=== PATIENT | female | born 1975 | race Two or more races ===

== ENCOUNTER 2022-01-23 13:35 | Emergency (ER) | payer MEDICAID ==
[~2022-01-23] VITALS: Ht 160 cm; Wt 77.6 kg
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
--- NOTE | 2022-01-23 13:49 | NUR ---
TO ER BED 2 AWAITING MD GROSSMAN
[2022-01-23] MEDS ORDERED: CARI350T PO ×2 (13:56→14:13)
--- NOTE | 2022-01-23 14:02 | NUR ---
Patient discharged to home in stable condition. Written and verbal after care instructions given. Patient verbalizes understanding of instruction.
[2022-01-23 14:17] VITALS: BP 119/68
== END 2022-01-23 14:18 | disposition home or self-care (01) ==
LOC: ER 13:47
DX: M79.10 Myalgia, unspecified site (principal); Z79.899 Other long term (current) drug therapy; V49.9XXA Car occupant (driver) (passenger) injured in unspecified traffic accident, initial encounter; Y93.89 Activity, other specified; Y92.89 Other specified places as the place of occurrence of the external cause; Y99.8 Other external cause status

== ENCOUNTER 2024-05-16 06:21 | Emergency (ER) | payer MEDICAID, OTHER ==
[~2024-05-16] VITALS: Ht 175.3 cm; Wt 74.8 kg
[~2024-05-16 06:21] MED LIST: CARI350T PO
[2024-05-16 06:44] VITALS: BP 147/74; TEMP 98.6; O2SAT 99
[2024-05-16] MEDS ORDERED: CYCL10TA9 PO (06:53)
[2024-05-16] MEDS ORDERED: NAPR-1164 PO (06:53)
== END 2024-05-16 07:04 | disposition home or self-care (01) ==
LOC: ER 06:32
DX: M62.830 Muscle spasm of back (principal); M54.2 Cervicalgia; R50.9 Fever, unspecified